=== PATIENT | female | born 1960 | race African-American/Black ===

== ENCOUNTER 2021-02-06 14:00 | Inpatient (IN) | payer MEDICARE, MEDICAID ==
[2021-02-06] VITALS (23 sets, daily range): BP systolic 108–140; BP diastolic 52–99
[~2021-02-06] VITALS: Ht 162.6 cm; Wt 110.9 kg
[~2021-02-06 14:00] MED LIST: AMLO10TA80 PO; CARV3.1242 PO; CLOP-31 PO; DOCU-138 PO; FLUT1AER INH; PRED5TAB PO; TIOT18CA3 INH
[2021-02-06] MEDS ORDERED: PANTOPRAZOLE SODIUM 40 MG/VIAL IV ONE (15:15)
[2021-02-06] MEDS ORDERED: SODIUM CHLORIDE 0.9% 500 ML IV ONE (15:15)
[2021-02-06] MEDS ORDERED: SODIUM CHLORIDE 0.9% 1,000 ML IV ONE (15:15)
[2021-02-06] MEDS ORDERED: NOREPINEPHRINE 8MG/250ML PMX 250 ML IV STA (15:18)
[2021-02-06] MEDS ORDERED: VASOPRESSIN 20 UNIT in SODIUM CHLORIDE 0.9% 99 ML STA (15:18)
[2021-02-06] MEDS ORDERED: VASOPRESSIN 20 UNIT in SODIUM CHLORIDE 0.9% 99 ML IV STA (15:27)
[2021-02-06] MEDS ORDERED: NOREPINEPHRINE 8 MG in DEXT 5% WATER 250 ML IV ONE (15:30)
[2021-02-06 15:39] LABS: BASOPHILS % 0.3 % (0.0-2.0); EOSINOPHILS % 1.7 % (0.0-5.0); HEMATOCRIT. 27.5 % (36.0-48.0); HEMOGLOBIN. 9.5 g/dL (12.0-16.0); LYMPHOCYTES % 25.4 % (20.0-50.0); MEAN CORPUSCULAR HEMOGLOBIN 29.7 pg (28.0-32.0); MEAN CORPUSCULAR VOLUME 85.6 fL (81.0-99.0); MEAN PLATELET VOLUME 7.5 fl (7.4-10.4); MONOCYTES % 4.7 % (2.0-8.0); NEUTROPHILS % 67.9 % (40.0-76.0); PLATELET 287 x1000/uL (130-400); RED BLOOD CELL COUNT 3.21 mill/uL (4.2-5.4); RED CELL DISTRIBUTION WIDTH 14.7 % (11.6-14.6)
[2021-02-06 15:46] LABS: CHLORIDE 110 mEq/L (98-107)
[2021-02-06] MEDS ORDERED: IPRATROPIUM/ALBUTEROL 0.5-3(2.5)MG/3ML NEB HHN PRN (17:30)
[2021-02-06] MEDS ORDERED: ONDANSETRON HCL 4MG/2ML INJ IV PRN (17:30)
[2021-02-06] MEDS ORDERED: DIPHENHYDRAMINE 50MG/ML VIAL IV PRN (17:30)
[2021-02-06] MEDS: DEXT 5%/0.9% NACL 1,000 ML IV SCH (18:52)
[2021-02-06] MEDS ORDERED: NOREPINEPHRINE 32 MG in DEXT 5% WATER 218 ML IV PRN (19:00)
[2021-02-06 19:25] LABS: TOTAL IRON BINDING CAPACITY 252 ug/dL (250-450)
[2021-02-06 19:40] LABS: FERRITIN 40 ng/mL (10-291)
[2021-02-06 19:42] LABS: FOLIC ACID (FOLATE) SERUM > 20.00 ng/mL (>5.38)
[2021-02-06 19:53] LABS: VITAMIN B12 SERUM 453 pg/mL (211-911)
[2021-02-06] MEDS ORDERED: IPRA4AER IH (20:21)
[2021-02-06] MEDS ORDERED: TIOT4MIS2 IH (20:21)
[2021-02-06] MEDS ORDERED: CALC625T15 PO (20:21)
[2021-02-06] MEDS ORDERED: ASPI-1406 PO (20:21)
[2021-02-06] MEDS ORDERED: OLME1TAB92 PO (20:21)
[2021-02-06] MEDS ORDERED: IBUP-2030 PO (20:21)
[2021-02-06] MEDS ORDERED: MIRT-91 PO (20:46)
[2021-02-06 23:21] LABS: CLARITY URINE CLEAR (CLEAR); COLOR URINE YELLOW (YELLOW); KETONES URINE NEGATIVE (NEGATIVE); LEUKOCYTE ESTERASE URINE 1+ (NEGATIVE); NITRITE URINE NEGATIVE (NEGATIVE); OCCULT BLOOD URINE 2+ (NEGATIVE); PH URINE 7.5 (4.5-8.0); PROTEIN URINE NEGATIVE (NEGATIVE); SPECIFIC GRAVITY URINE 1.019 (1.005-1.030); UROBILINOGEN URINE 0.2 E.U./dL (0.2-1.0)
[2021-02-06 23:51] LABS: BASOPHILS % 0.2 % (0.0-2.0); EOSINOPHILS % 0.7 % (0.0-5.0); HEMOGLOBIN. 8.8 g/dL (12.0-16.0); LYMPHOCYTES % 27.9 % (20.0-50.0); MEAN CORPUSCULAR HEMOGLOBIN 28.6 pg (28.0-32.0); MEAN CORPUSCULAR VOLUME 84.8 fL (81.0-99.0); MEAN PLATELET VOLUME 7.4 fl (7.4-10.4); MONOCYTES % 5.8 % (2.0-8.0); NEUTROPHILS % 65.4 % (40.0-76.0); PLATELET 242 x1000/uL (130-400); RED BLOOD CELL COUNT 3.06 mill/uL (4.2-5.4); RED CELL DISTRIBUTION WIDTH 14.8 % (11.6-14.6)
[2021-02-07] VITALS (95 sets, daily range): BP systolic 50–126; BP diastolic 17–100
[2021-02-07] MEDS ORDERED: AMLO5TAB88 PO (00:25)
[2021-02-07] MEDS ORDERED: CARV3.1242 PO (00:26)
[2021-02-07] MEDS ORDERED: SILD20TA PO (00:29)
[2021-02-07] MEDS ORDERED: VASOPRESSIN 20 UNIT in SODIUM CHLORIDE 0.9% 99 ML IV PRN (00:30)
[2021-02-07] MEDS ORDERED: IPRATROPIUM/ALBUTEROL 0.5-3(2.5)MG/3ML NEB HHN PRN (00:30)
[2021-02-07] MEDS ORDERED: NON FORMULARY PATIENT HOME MED XX SCH (00:45)
[2021-02-07 01:43] LABS: INR 1.1; PARTIAL THROMBOPLASTIN TIME 23.1 sec (23.4-31.0); PROTHROMBIN TIME 11.9 sec (9.6-11.0)
[2021-02-07] MEDS: DEXT 5%/0.9% NACL 1,000 ML IV SCH ×3 (05:31→23:31)
[2021-02-07 05:46] LABS: BASOPHILS % 0.6 % (0.0-2.0); CHLORIDE 113 mEq/L (98-107); EOSINOPHILS % 2.1 % (0.0-5.0); HEMATOCRIT. 24.7 % (36.0-48.0); HEMOGLOBIN. 8.2 g/dL (12.0-16.0); LYMPHOCYTES % 28.5 % (20.0-50.0); MEAN CORPUSCULAR HEMOGLOBIN 28.5 pg (28.0-32.0); MEAN CORPUSCULAR VOLUME 85.5 fL (81.0-99.0); MEAN PLATELET VOLUME 7.9 fl (7.4-10.4); MONOCYTES % 5.9 % (2.0-8.0); NEUTROPHILS % 62.9 % (40.0-76.0); PLATELET 237 x1000/uL (130-400); RED BLOOD CELL COUNT 2.89 mill/uL (4.2-5.4)
[2021-02-07 05:59] LABS: LDL CHOLESTEROL 40 mg/dL (5-100)
[2021-02-07 06:01] LABS: HDL CHOLESTEROL 24 mg/dL (40-59)
[2021-02-07] MEDS: IPRATROPIUM BROMIDE (0.02%) 0.5MG/2.5ML NEB HHN SCH ×3 (08:38→21:05)
[2021-02-07] MEDS: PANTOPRAZOLE SODIUM 40 MG/VIAL IV SCH (09:16)
[2021-02-07 12:36] LABS: HEMATOCRIT 24.4 % (36.0-48.0); HEMOGLOBIN 8.5 g/dL (12.0-16.0)
[2021-02-07] MEDS ORDERED: SILDENAFIL CITRATE 20MG TABLET PO SCH (14:00)
[2021-02-07 20:47] LABS: BASOPHILS % 0.2 % (0.0-2.0); EOSINOPHILS % 6.2 % (0.0-5.0); HEMATOCRIT. 24.6 % (36.0-48.0); HEMOGLOBIN. 8.4 g/dL (12.0-16.0); LYMPHOCYTES % 38.9 % (20.0-50.0); MEAN CORPUSCULAR HEMOGLOBIN 29.1 pg (28.0-32.0); MEAN CORPUSCULAR VOLUME 85.4 fL (81.0-99.0); MEAN PLATELET VOLUME 7.4 fl (7.4-10.4); NEUTROPHILS % 47.7 % (40.0-76.0); PLATELET 252 x1000/uL (130-400); RED BLOOD CELL COUNT 2.88 mill/uL (4.2-5.4); RED CELL DISTRIBUTION WIDTH 14.5 % (11.6-14.6)
[2021-02-07] MEDS ORDERED: MIRTAZAPINE 30MG TABLET PO SCH (21:00)
[2021-02-07] MEDS: MIRTAZAPINE 15MG TABLET PO SCH (21:23)
[2021-02-08] VITALS (42 sets, daily range): BP systolic 91–158; BP diastolic 50–104
[2021-02-08] MEDS: IPRATROPIUM BROMIDE (0.02%) 0.5MG/2.5ML NEB HHN SCH ×4 (01:57→19:58)
[2021-02-08 05:54] LABS: CHLORIDE 116 mEq/L (98-107)
[2021-02-08 06:02] LABS: BASOPHILS % 0.7 % (0.0-2.0); EOSINOPHILS % 7.8 % (0.0-5.0); HEMATOCRIT. 24.6 % (36.0-48.0); HEMOGLOBIN. 8.2 g/dL (12.0-16.0); LYMPHOCYTES % 33.9 % (20.0-50.0); MEAN CORPUSCULAR HEMOGLOBIN 28.8 pg (28.0-32.0); MEAN CORPUSCULAR VOLUME 86.3 fL (81.0-99.0); MEAN PLATELET VOLUME 7.9 fl (7.4-10.4); MONOCYTES % 5.1 % (2.0-8.0); NEUTROPHILS % 52.5 % (40.0-76.0); PLATELET 245 x1000/uL (130-400); RED BLOOD CELL COUNT 2.85 mill/uL (4.2-5.4)
[2021-02-08 06:06] LABS: INR 1.1; PROTHROMBIN TIME 11.4 sec (9.6-11.0)
[2021-02-08] MEDS: DEXT 5%/0.9% NACL 1,000 ML IV SCH ×2 (09:09→20:30)
[2021-02-08] MEDS: PANTOPRAZOLE SODIUM 40 MG/VIAL IV SCH (09:09)
[2021-02-08 12:39] LABS: HEMATOCRIT 25.1 % (36.0-48.0); HEMOGLOBIN 8.6 g/dL (12.0-16.0)
[2021-02-08] MEDS ORDERED: KETAMINE HCL 50 MG/ML 10ML ONE (15:54)
[2021-02-08] MEDS ORDERED: MIDAZOLAM HCL 2 MG/2 ML VIAL ONE (16:06)
[2021-02-08] MEDS ORDERED: SODIUM CHLORIDE 0.9% 10ML VIAL ONE (16:08)
[2021-02-08] MEDS ORDERED: LIDOCAINE HCL/PF 1% 10 MG/ML 5ML VIAL ONE (16:09)
[2021-02-08] MEDS ORDERED: PROPOFOL 200MG/20ML VIAL IV ONE (16:17)
[2021-02-08 19:16] LABS: HEMOGLOBIN 9.3 g/dL (12.0-16.0)
[2021-02-08] MEDS: MIRTAZAPINE 15MG TABLET PO SCH (20:30)
[2021-02-09] VITALS (17 sets, daily range): BP systolic 97–154; BP diastolic 55–80
[2021-02-09] MEDS: IPRATROPIUM BROMIDE (0.02%) 0.5MG/2.5ML NEB HHN SCH ×3 (01:55→12:00)
[2021-02-09] MEDS: DEXT 5%/0.9% NACL 1,000 ML IV SCH ×2 (05:48→15:30)
[2021-02-09 06:03] LABS: CHLORIDE 113 mEq/L (98-107)
[2021-02-09 06:09] LABS: BASOPHILS % 0.8 % (0.0-2.0); EOSINOPHILS % 6.4 % (0.0-5.0); HEMATOCRIT. 24.3 % (36.0-48.0); HEMOGLOBIN. 8.1 g/dL (12.0-16.0); MEAN CORPUSCULAR HEMOGLOBIN 28.6 pg (28.0-32.0); MEAN PLATELET VOLUME 7.4 fl (7.4-10.4); MONOCYTES % 6.3 % (2.0-8.0); NEUTROPHILS % 56.5 % (40.0-76.0); PLATELET 279 x1000/uL (130-400); RED BLOOD CELL COUNT 2.83 mill/uL (4.2-5.4); RED CELL DISTRIBUTION WIDTH 14.7 % (11.6-14.6)
[2021-02-09] MEDS: PANTOPRAZOLE SODIUM 40 MG/VIAL IV SCH (09:00)
[2021-02-09] MEDS ORDERED: PANT40TA51 MT (15:11)
== END 2021-02-09 17:25 | disposition home or self-care (01) | DRG 377 ==
LOC: ER 14:00 → CVICU 16:20 → ENRESERV 16:44 → MICUSO 17:35 → MICUNO 17:43 → 8WST 02-09 13:55
PROVIDERS: ADMIT Internal Medicine; ATTEND Internal Medicine
PROC: 06HY33Z Insertion of Infusion Device into Lower Vein, Percutaneous Approach (ICD-10-PCS; principal; 2021-02-06)
PROC: B54BZZA Ultrasonography of Right Lower Extremity Veins, Guidance (ICD-10-PCS; 2021-02-06)
PROC: 30233N1 Transfusion of Nonautologous Red Blood Cells into Peripheral Vein, Percutaneous Approach (ICD-10-PCS; 2021-02-06)
PROC: 0DB78ZX Excision of Stomach, Pylorus, Via Natural or Artificial Opening Endoscopic, Diagnostic (ICD-10-PCS; 2021-02-08)
DX: K25.4 Chronic or unspecified gastric ulcer with hemorrhage (principal); R57.8 Other shock; D62 Acute posthemorrhagic anemia; J96.10 Chronic respiratory failure, unspecified whether with hypoxia or hypercapnia; Z68.41 Body mass index [BMI] 40.0-44.9, adult; K29.71 Gastritis, unspecified, with bleeding; E66.01 Morbid (severe) obesity due to excess calories; E78.5 Hyperlipidemia, unspecified; I10 Essential (primary) hypertension; I27.20 Pulmonary hypertension, unspecified; J44.9 Chronic obstructive pulmonary disease, unspecified; J84.10 Pulmonary fibrosis, unspecified; M19.012 Primary osteoarthritis, left shoulder; F14.90 Cocaine use, unspecified, uncomplicated; Z20.822 Contact with and (suspected) exposure to COVID-19; F41.9 Anxiety disorder, unspecified; K57.90 Diverticulosis of intestine, part unspecified, without perforation or abscess without bleeding; E11.65 Type 2 diabetes mellitus with hyperglycemia; Z79.52 Long term (current) use of systemic steroids; Z90.81 Acquired absence of spleen; Z79.02 Long term (current) use of antithrombotics/antiplatelets; Z86.73 Personal history of transient ischemic attack (TIA), and cerebral infarction without residual deficits; Z79.1 Long term (current) use of non-steroidal anti-inflammatories (NSAID); Z79.899 Other long term (current) drug therapy; Z79.82 Long term (current) use of aspirin; Z99.81 Dependence on supplemental oxygen; Z79.51 Long term (current) use of inhaled steroids
CPT/HCPCS: 36415; 71045; 76700; 80048; 80053; 80061; 81003; 82607; 82728; 82746; 83036; 83540; 83550; 83880; 84443; 84484; 85014; 85018; 85025; 85044; 86850; 86900; 86920; 87426; 88305; 88312; 88313; 93005; 93970; 94640; 99291; A6261; C9113; J2250; J2704; J3490; J7030; J7040; J7042; J7050; J7060; P9016